=== PATIENT | female | born 1950 | race Caucasian/White ===

== ENCOUNTER → 2016-08-02 | Outpatient (CLI) | payer MEDICARE, OTHER ==
[~2016-08-02] MED LIST: BP PILL; FLEXERIL PO; LISINOPRIL-HCTZ1 T18; LISINOPRIL-HCTZ1 T19 PO; OXYCODON HCL-AP1 TA2 PO; PRILOSEC20 M1 PO; PRILOSEC20 MG; VICODIN PO; ZOLOFT100 MG PO
--- NOTE | ~2016-08-02 | MY11 ---
[facility] A Service of [facility] RADIOLOGY TEXT RESULTS PATIENT: GENARO WILSON LOCATION: [facility] ACC #: [id number] : 48 UNIT #: [id number] AGE: [address]: ARTUR FUNG MD (INT MED) SEX: F ORDER DR: [id number] [address] [address] [id number] O MR#: [id number] #: [id number] NAME: GENARO WILSON : 1950 SEX: F STUDY DATE/TIME: 08/02/2016 8:55 UNIT: [facility] ROOM: STUDY DESCRIPTION: MY Mammogram Screening Dig Ha Attending Physician: Artur Fung M.D. Referring Physician: Artur Fung M.D. Ordering Physician: Artur Fung M.D. Primary Care Physician: Artur Fung M.D. MEDICAL IMAGING REPORT This report is preliminary unless electronic signature is present. EXAM Bilateral Digital Screening Mammogram with CAD COMPARISON July 18, 2015, June 25, 2014, October 19, 2013, March 31, 2012, December 29, 2020, and October 13. INDICATION Breast cancer screening. 66-year-old asymptomatic female. No personal or family history of breast cancer. FINDINGS There are scattered fibroglandular tissues. No suspicious findings are present. IMPRESSION No mammographic evidence of malignancy. Annual screening mammography and clinical breast exam are recommended. A result letter will be sent to the patient. Patients over the age of 40 are entered into a reminder system with target due date for the next mammogram. BIRADS: 1 Negative Dictated by... [facility] A Service [facility] RADIOLOGY TEXT RESULTS PATIENT: GENARO WILSON LOCATION: [facility] : 48 UNIT #: [id number] AGE: [address]: ARTUR FUNG MD (INT MED) SEX: F ORDER DR: Todd Joaquin Hiram, M.D. THIS IS AN ELECTRONICALLY VERIFIED REPORT Todd Gandhi M.D. at 08/04/2016 10:40 AM Annika TD: 08/02/2016 11:12 JOB #: [id number] MEDICAL IMAGING REPORT Page 1 of 1
== END | disposition home or self-care (01) ==
LOC: SMAM 08:03
DX: Z12.31 Encounter for screening mammogram for malignant neoplasm of breast (principal)
CPT/HCPCS: G0202